=== PATIENT | female | born 1950 | race Caucasian/White ===

== ENCOUNTER 2019-06-03 02:11 | Observation (INO) | payer OTHER, MEDICAID ==
[2019-06-03] MEDS ORDERED: DOCUSATE SODIUM 100 MG CAP PO (03:00)
[2019-06-03] MEDS ORDERED: NACL 0.9% 3 ML SYG IV (03:00)
[2019-06-03] MEDS ORDERED: ENALAPRILAT 1.25 MG INJ IV (03:00)
[2019-06-03] MEDS ORDERED: NITROGLYCERIN (SL) 0.4 MG TAB SL (03:00)
[2019-06-03] MEDS ORDERED: ONDANSETRON 4 MG INJ IV (03:00)
[2019-06-03] MEDS ORDERED: GLUCAGON 1 MG INJ IM (03:30)
[2019-06-03] MEDS ORDERED: GLUCOSE GEL 15 GRAM TUBE BUCCAL (03:30)
[2019-06-03] MEDS ORDERED: GLUCOSE GEL 15 GRAM TUBE PO ×2 (03:30)
[2019-06-03] MEDS ORDERED: DEXTROSE 50% 50 ML SYRINGE IV ×2 (03:30)
[2019-06-03] MEDS: DEXTROSE 5%-0.45% NACL 1,000 ML IV ×2 (03:50→17:11)
[2019-06-03 05:13] LABS: ADD MAN DIFF? NO
[2019-06-03] MEDS: HEPARIN 5,000 UNIT/1 ML VIAL SC ×3 (05:31→22:52)
[2019-06-03 05:32] LABS: BASOPHIL # 0.1 10^3/ul (0.0-0.1); BASOPHILS % 0.8 % (0.0-2.0); EOSINOPHILS # 0.9 10^3/ul (0.0-0.5); HEMATOCRIT 38.9 % (37.0-47.0); HEMOGLOBIN 12.8 g/dl (12.0-16.0); LYMPHOCYTES # 3.3 10^3/ul (0.8-2.9); LYMPHOCYTES % 30.8 % (15.0-51.0); MEAN CORPUSCULAR HEMOGLOBIN 29.2 pg (29.0-33.0); MEAN CORPUSCULAR HGB CONC 32.9 g/dl (32.0-37.0); MEAN CORPUSCULAR VOLUME 88.6 fl (82.0-101.0); MEAN PLATELET VOLUME 11.7 fl (7.4-10.4); MONOCYTES % 9.6 % (0.0-11.0); NEUTROPHIL # 5.4 10^3/ul (1.6-7.5); NEUTROPHILS % 50.4 % (39.0-77.0); PLATELET COUNT 239 10^3/UL (140-415); RED BLOOD COUNT 4.39 10^6/ul (4.20-5.40); RED CELL DISTRIBUTION WIDTH 12.4 % (11.5-14.5)
[2019-06-03 05:32] LABS: WHITE BLOOD COUNT 10.7 10^3/ul (4.8-10.8)
[2019-06-03 05:47] LABS: CREATINE KINASE 27 IU/L (23-200)
[2019-06-03 05:51] LABS: ALANINE AMINOTRANSFERASE 29 IU/L (13-69); ALBUMIN 3.2 g/dl (3.3-4.9); ALKALINE PHOSPHATASE 84 IU/L (42-121); ANION GAP 6 (5-13); ASPARTATE AMINO TRANSFERASE 23 IU/L (15-46); BILIRUBIN,INDIRECT 0.4 mg/dl (0-1.1); BILIRUBIN,TOTAL 0.4 mg/dl (0.2-1.3); BLOOD UREA NITROGEN 13 mg/dl (7-20); CALCIUM 9.2 mg/dl (8.4-10.2); CARBON DIOXIDE 32 mmol/L (21-31); CHLORIDE 96 mmol/L (97-110); CHOL/HDL RATIO 4.5 RATIO; CHOLESTEROL 172 mg/dl (100-200); CREATININE 0.45 mg/dl (0.44-1.00); Estimated GFR > 60 mL/min (>60); GLUCOSE 292 mg/dl (70-220); HDL CHOLESTEROL 38 mg/dl (35-98); LDL CHOLESTEROL,CALCULATED 95 mg/dl; MAGNESIUM 1.9 mg/dl (1.7-2.5); PHOSPHORUS 3.5 mg/dl (2.5-4.9); POTASSIUM 3.9 mmol/L (3.5-5.1); SODIUM 134 mmol/L (135-144); TOTAL PROTEIN 6.1 g/dl (6.1-8.1); TRIGLYCERIDES 194 mg/dl (0-149)
[2019-06-03 05:59] LABS: B-TYPE NATRIURETIC PEPTIDE 241 PG/ML (0-125)
[2019-06-03 06:01] LABS: CK INDEX 3.7; TROPONIN-I < 0.012 ng/ml (0.000-0.120)
[2019-06-03 06:06] LABS: FREE THYROXINE INDEX (Calc) 3.01 ug/ml (0.65-3.89); T3 UPTAKE 36.7 % (23.5-40.5); T4 (THYROXINE) 8.2 ug/dl (5.5-11.0)
[2019-06-03] MEDS: FAMOTIDINE 20 MG INJ IV ×2 (08:55→20:35)
[2019-06-03] MEDS: INSULIN ASPART [NOVOLOG] 3 ML PEN SC ×4 (08:59→20:56)
[2019-06-03 09:15] LABS: D-DIMER 586.61 ng/ml (<460)
[2019-06-03 09:20] LABS: CREATINE KINASE 30 IU/L (23-200)
[2019-06-03 09:34] LABS: CK INDEX 3.4; CK-MB 1.01 ng/ml (0.0-2.4); TROPONIN-I < 0.012 ng/ml (0.000-0.120)
[2019-06-03 11:24] LABS: AMPHETAMINE/METHAMPHETAMINE Negative (NEGATIVE); BARBITURATES Negative (NEGATIVE); BENZODIAZEPINES Negative (NEGATIVE); CANNABINOIDS Negative (NEGATIVE); OPIATES Negative (NEGATIVE)
[2019-06-03 11:35] LABS: COCAINE Negative (NEGATIVE)
[2019-06-03] MEDS: REGADENOSON 0.4 MG/5 ML SYG (11:45)
[2019-06-03] MEDS: INSULIN GLARGINE [LANTus] (100 UNITS/ML) SYG SC ×2 (13:08→20:56)
[2019-06-03] MEDS: morphine 2 MG INJ IV (20:34)
[2019-06-04] MEDS: HEPARIN 5,000 UNIT/1 ML VIAL SC ×2 (05:10→08:55)
[2019-06-04] MEDS: DEXTROSE 5%-0.45% NACL 1,000 ML IV (07:29)
[2019-06-04] MEDS: INSULIN ASPART [NOVOLOG] 3 ML PEN SC ×2 (08:17→11:43)
[2019-06-04] MEDS: ASPIRIN 81 MG TAB PO (08:47)
[2019-06-04] MEDS: FAMOTIDINE 20 MG INJ IV (08:48)
== END 2019-06-04 13:55 | disposition home or self-care (01) ==
LOC: 6WM 02:11
PROVIDERS: Internal Medicine
DX: R07.9 Chest pain, unspecified (principal); E11.65 Type 2 diabetes mellitus with hyperglycemia; I10 Essential (primary) hypertension; G31.84 Mild cognitive impairment of uncertain or unknown etiology; G93.40 Encephalopathy, unspecified; E78.5 Hyperlipidemia, unspecified; E66.9 Obesity, unspecified; Z68.34 Body mass index [BMI] 34.0-34.9, adult; Z79.82 Long term (current) use of aspirin; Z79.4 Long term (current) use of insulin
CPT/HCPCS: 78452; 80053; 80061; 80307; 82550; 82553; 82962; 83036; 83735; 83880; 84100; 84436; 84479; 84484; 85025; 85378; 93005; 93017; 93306; 99217; G0378